=== PATIENT | female | born 1995 | race African-American/Black ===

== ENCOUNTER 2023-06-06 02:15 | Inpatient (IN) | payer OTHER ==
[2023-06-06] MEDS ORDERED: PENICILLIN POTASSIUM IVPB ONE (03:10)
[2023-06-06] MEDS ORDERED: SODIUM CHLORIDE IVPB ONE (03:10)
[2023-06-06] MEDS ORDERED: PENICILLIN G POTASSIUM 5,000,000 UNIT/250 ML BAG IVPB ONE ×2 (03:18→03:30)
[2023-06-06] MEDS ORDERED: SODIUM CHLORIDE 1,000 ML IV STA (03:19)
[2023-06-06 03:28] VITALS: BMI 34.4
[2023-06-06] MEDS ORDERED: DEXTROSE 5%-WATER - 1,000 ML IV SCH (03:30)
[2023-06-06 03:54] LABS: BASO % 0.5 % (0-2.0); EOS % 0.4 % (0-4.5); HEMATOCRIT 34.7 % (32.4-45.2); HEMOGLOBIN 11.8 GM/dL (10.7-15.3); MCH 31.2 pg (25.7-33.7); MCHC 33.9 g/dl (32.0-36.0); MEAN CELL VOLUME 91.9 fl (80-96); MEAN PLT VOLUME 10.1 fl (7.5-11.1); MONO % 6.8 % (3.8-10.2); NEUT % 75.3 % (42.8-82.8); PLATELET COUNT 180 10^3/uL (134-434); RBC 3.78 M/mm3 (3.60-5.2); RDW 14.9 % (11.6-15.6); WHITE BLOOD COUNT 10.5 K/mm3 (4.0-10.0)
[2023-06-06 04:08] LABS: INR 0.95 (0.83-1.09)
[2023-06-06 04:10] LABS: ACTIVATED PTT 28.1 SECONDS (25.2-36.5); POTASSIUM 3.9 mmol/L (3.5-5.1)
[2023-06-06 04:11] LABS: CALCIUM 8.5 mg/dL (8.5-10.1)
[2023-06-06 04:12] LABS: BLOOD UREA NITROGEN 10.4 mg/dL (7-18)
[2023-06-06 04:15] LABS: CREATININE 0.7 mg/dL (0.55-1.3)
[2023-06-06] MEDS ORDERED: OXYTOCIN 20 UNITS in 0.9% NS 20 UNIT/1,000 ML INFUS.BAG IV ONE ×2 (04:29→07:43)
[2023-06-06] MEDS ORDERED: OXYTOCIN 10 UNITS/ML VIAL IM ONE (05:00)
[2023-06-06] MEDS ORDERED: OXYTOCIN 10 UNITS/ML VIAL ONE (05:06)
[2023-06-06] MEDS ORDERED: WITCH HAZEL 50% (TUCKS) 40 PAD/JAR PAD TP PRN (05:58)
[2023-06-06] MEDS ORDERED: BENZOCAINE 28 GM HEMORRHOIDAL OINTMENT TP PRN (05:58)
[2023-06-06] MEDS ORDERED: ACETAMINOPHEN 325 MG TABLET (FP) PO PRN (05:58)
[2023-06-06] MEDS ORDERED: OXYTOCIN 20 UNITS in 0.9% NS 20 UNIT/1,000 ML INFUS.BAG IV SCH (06:00)
[2023-06-06 06:39] LABS: CORD BASE EXCESS -3.5 mmol/L (0-2); CORD HCO3 22.1 mmHg (20-29); CORD PCO2 41.8 mmHg (30-78); CORD pH 7.341 (7.14-7.44)
[2023-06-06 06:40] LABS: CORD BASE EXCESS -3.8 mmol/L (0-2); CORD HCO3 21.2 mmHg (20-29); CORD PCO2 38.3 mmHg (30-78); CORD pH 7.36 (7.14-7.44)
[2023-06-06] MEDS ORDERED: PENICILLIN G POTASSIUM 2,500,000 UNIT in SODIUM CHLORIDE 100 ML IVPB SCH (07:30)
[2023-06-06] MEDS: IBUPROFEN 600 MG TABLET (FP) PO PRN (07:49)
[2023-06-06] MEDS ORDERED: IBUPROFEN 600 MG TABLET (FP) PO ONE (07:50)
[2023-06-06] MEDS: FERROUS SO4 325 MG TABLET (FP) PO SCH ×3 (10:07→18:11)
[2023-06-06] MEDS: PRENATAL VITAMINS W/ FOLIC ACID TABLET (FP) PO SCH (10:07)
[2023-06-06 13:03] LABS: POC NITRAZINE POS
[2023-06-07] MEDS: IBUPROFEN 600 MG TABLET (FP) PO PRN (07:59)
[2023-06-07] MEDS: FERROUS SO4 325 MG TABLET (FP) PO SCH ×3 (07:59→17:12)
[2023-06-07 08:28] LABS: BASO % 0.3 % (0-2.0); EOS % 0.9 % (0-4.5); HEMOGLOBIN 10.1 GM/dL (10.7-15.3); LYMPH % 21.7 % (8-40); MCH 30.6 pg (25.7-33.7); MCHC 32.5 g/dl (32.0-36.0); MEAN CELL VOLUME 94.3 fl (80-96); MEAN PLT VOLUME 10.2 fl (7.5-11.1); MONO % 4.4 % (3.8-10.2); NEUT % 72.7 % (42.8-82.8); PLATELET COUNT 194 10^3/uL (134-434); RBC 3.29 M/mm3 (3.60-5.2); RDW 14.5 % (11.6-15.6); WHITE BLOOD COUNT 9.6 K/mm3 (4.0-10.0)
[2023-06-07] MEDS: PRENATAL VITAMINS W/ FOLIC ACID TABLET (FP) PO SCH (09:17)
[2023-06-07 10:27] VITALS: RESP 17
[2023-06-08] MEDS: IBUPROFEN 600 MG TABLET (FP) PO PRN ×3 (01:12→13:07)
[2023-06-08] MEDS: FERROUS SO4 325 MG TABLET (FP) PO SCH ×2 (10:06→12:37)
[2023-06-08] MEDS: PRENATAL VITAMINS W/ FOLIC ACID TABLET (FP) PO SCH (10:06)
[2023-06-08 10:56] VITALS: BP 127/81; PULSE 82; TEMP 98.1
== END 2023-06-08 16:10 | disposition home or self-care (01) | DRG 807 ==
LOC: JDEL 02:15 → JLDR 03:05 → J3W 08:08
PROVIDERS: ADMIT Obstetrics & Gynecology Maternal & Fetal Medicine; ATTEND Obstetrics & Gynecology Maternal & Fetal Medicine
PROC: 10E0XZZ Delivery of Products of Conception, External Approach (ICD-10-PCS; principal; 2023-06-06)
PROC: 0HQ9XZZ Repair Perineum Skin, External Approach (ICD-10-PCS; 2023-06-06)
DX: O48.0 Post-term pregnancy (principal); Z37.0 Single live birth; O36.5930 Maternal care for other known or suspected poor fetal growth, third trimester, not applicable or unspecified; O70.0 First degree perineal laceration during delivery; Z3A.40 40 weeks gestation of pregnancy
CPT/HCPCS: 36415; 36600; 80048; 82803; 83986-QW; 85025; 85610; 85730; 86780; 86850; 86900; 86901; 88307-TC